=== PATIENT | female | born 1975 | race Hispanic/Latino ===

== ENCOUNTER 2016-10-04 23:40 | Emergency (ER) | payer OTHER ==
[2016-10-04 23:54] VITALS: TEMP 98.2
[2016-10-05 00:35] LABS: HEMOGLOBIN 10.8 g/dL (12.0-16.0); MEAN CORPUSCULAR HEMOGLOBIN 28.4 pg (27.0-31.0); MEAN CORPUSCULAR HGB CONC 32.3 g/dL (33.0-37.0); RBC 3.8 Mil/uL (3.80-5.20); RED CELL DISTRIBUTION WIDTH 13.2 % (11.5-14.5); WHITE BLOOD COUNT 6.6 K/uL (4.8-10.8)
[2016-10-05 00:53] VITALS: O2SAT 100
--- NOTE | 2016-10-05 00:53 | ED PDOC ---
HPI: Female Pain Time Seen by Provider: 10/04/16 23:59 Chief Complaint (Nursing): Female Genitourinary Chief Complaint (Provider): Female Genitourinary History Per: Patient History/Exam Limitations: no limitations Onset/Duration Of Symptoms: Hrs (One ) Severity: Mild Additional Complaint(s): 40 y/o female presenting to the ED with vaginal bleeding. PT had a caesarean section two weeks ago. The patient states that one hour before arrival to the ED she began having vaginal bleeding but it only has occurred once. The patient contacted her OBGYN who advised that as long as the vaginal bleeding did not soak through more than two pads it was fine (and it has not soaked through more than two pads). Patient denies any dizziness, lightheadedness or any other symptoms. Past Medical History Reviewed: Historical Data, Nursing Documentation, Vital Signs Vital Signs: Last Vital Signs Temp 98.2 F 10/04/16 23:52 Pulse Resp BP Pulse Ox - Medical History PMH: No Chronic Diseases - Surgical History Surgical History: (Two weeks ago) - Family History Family History: States: Unknown Family Hx - Social History Ex-Smoker (has not smoked in the last 12 months): No Alcohol: None Drugs: Denies - Immunization History Hx Tetanus Toxoid Vaccination: Yes - Allergies Allergies/Adverse Reactions: Allergies Allergy/AdvReac Type Severity Reaction Status Date / Time No Known Allergies Allergy Verified 10/04/15 10:21 Review of Systems ROS Statement: Except As Marked, All Systems Reviewed And Found Negative Genitourinary Female: Positive for: Vaginal Bleeding Neurological: Positive for: Other ((-)Lightheadedness). Negative for: Weakness , Dizziness Physical Exam - Reviewed Nursing Documentation Reviewed: Yes Vital Signs Reviewed: Yes - Physical Exam Appears: Positive for: Non-toxic, No Acute Distress Head Exam: Positive for: ATRAUMATIC, NORMAL INSPECTION, NORMOCEPHALIC Skin: Positive for: Normal Color, Warm, Dry Respiratory: Positive for: Normal Breath Sounds. 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 Patient no longer bleeding, feeling better. Discharge: Re-evaluation. Patient feels better. Discussed results and plan with patient who expresses understanding. Counseling was provided regarding the diagnosis and prognosis. All questions answered and there is agreement with the plan to discharge home with instructions. Patient stable for discharge. Return if symptoms persist or worsen. Scribe Attestation: Documented by Brittni Hwang, acting as a scribe for Elias Barrios MD. Scribe Attestation: All medical record entries made by the Scribe were at my direction and personally dictated by me. I have reviewed the chart and agree that the record accurately reflects my personal performance of the history, physical exam, medical decision making, and the department course for this patient. I have also personally directed, reviewed, and agree with the discharge instructions and disposition. Disposition - Clinical Impression Clinical Impression: bleeding - Disposition Referrals: Jarrod Danielle MD [Family Provider] - Disposition: Routine/Home Disposition Time: 01:00 Condition: STABLE Instructions: Bleeding (ED)
[2016-10-05 00:56] VITALS: BP 105/62; PULSE 69; RESP 14
== END 2016-10-05 01:19 | disposition home or self-care (01) ==
LOC: H.ER 23:40
DX: O72.2 Delayed and secondary postpartum hemorrhage (principal)